=== PATIENT | female | born 1995 | race African-American/Black ===

== ENCOUNTER 2023-10-26 14:19 | Emergency (ER) | payer SELFPAY ==
[2023-10-26] VITALS (7 sets, daily range): BP systolic 108–137; BP diastolic 55–80; PULSE 51–79; RESP 16; TEMP 36.8–37.1; O2SAT 99–100
--- NOTE | 2023-10-26 15:11 | ED_ITS ---
HPI - Abdominal Pain 2 General: Chief Complaint: Abdominal Pain Stated Complaint: abd pain Time Seen by Provider: 10/26/23 15:01 History of Present Illness: 28-year-old female comes in today with l ower abdominal pain. Patient reports pain for about 1 week. Patient started her period about 2 days ago. Patient does have a history of microcytic anemia and heavy periods. Patient routinely takes acetaminophen and iron. Patient denies sexual intercourse. Patient reports no nausea vomiting or diarrhea. Patient does occasionally use alcohol but does not use any other drugs including marijuana, tobacco, methamphetamines. Patient has a family history of ovarian cancer. 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 Patient reports she is concerned that she may be anemic and required blood transfusion as she has had to have 1 in the past. Related Data: Date of Last Menstrual Period: 10/26/23 Review of Systems 2 General: Reports: 10 or more systems reviewed and unremarkable except in HPI and below GI: Reports: abdominal pain [facility] ED 2 Female Reproductive History: Date of last menstrual period: 10/26/23 Physical Exam 2 Const: COMMON NORMALS: alert HENMT: COMMON NORMALS: normocephalic HEAD & SCALP: normocephalic Neck/C-Spine: COMMON NORMALS: full ROM Resp: COMMON NORMALS: normal respiratory effort and clear to auscultation bilaterally AUSCULTATION: clear to auscultation bilaterally Cardio: COMMON NORMALS: regular rate RATE: regular rate GI: COMMON NORMALS: Soft to palpation PALPATION: Yes Soft to palpation and Yes Tenderness to palpation present (GI) (Mild periumbilical) Back/Pelvis: COMMON NORMALS: thoracic and lumbar spine normal to inspection Extremity: COMMON NORMALS: full ROM Neuro: SENSORIUM/ORIENTATION: Yes alert Skin: COMMON NORMALS: turgor normal GENERAL SKIN EXAM: turgor normal Course 2 Vital Signs: Vital signs: Vital Signs Temperature 98.8 F 10/26/23 18:30 Pulse Rate 74 10/26/23 19:04 Respiratory Rate 16 10/26/23 19:04 Blood Pressure 115/68 10/26/23 19:04 Pulse Oximetry 100 10/26/23 19:04 Oxygen Delivery Me thod Room Air 10/26/23 16:43 MDM - Abdominal Pain Medical Decision Making 28-year-old female comes in today for complaints of lower abdominal pain. Patient has a history of a bifurcated uterus and anemia. Patient is concerned that she may be anemic and requiring a blood transfusion due to similar symptoms to the last time she had to have a unit of blood. Patient appears nontoxic. Patient has been on her period x 2 days. Abdomen soft and flat with some mild suprapubic tenderness. Vital signs are normal except for some mild bradycardia with the pulse in the 50s. Differential diagnosis includes not limited to endometriosis, dysmenorrhea, abnormal uterine bleeding, anemia. Reviewed exam with Dr. Ohara, attending ER physician, who agreed with plan for transfusion of 1 unit of packed red blood cells for anemia. Hemoglobin was 6.9. Patient was infused with 1 unit of packed red blood cells with recommendations to follow-up with NETWORK TECHNICAL ANALYST for further treatment of menorrhagia. Patient has a long history of this and has had prior blood transfusions. Patient most likely will need hysterectomy but wants to be able to have a child which is delaying her care. Lab Data 10/26/23 15:00 10/26/23 15:00 Labs/Radiology: Laboratory Results WBC 6.38 10^3/uL (3.29-11.43) 10/26/23 15:00 RBC 4.44 10^6/uL (3.85-5.65) 10/26/23 15:00 Hgb 6.90 g/dL (11.27-16.99) L 10/26/23 15:00 Hct 28.7 % (36-47) L 10/26/23 15:00 MCV 64.6 fl (85-98) L 10/26/23 15:00 MCH 15.5 pg (27-33) L 10/26/23 15:00 MCHC 24.0 g/dL (30-55) L 10/26/23 15:00 RDW 19.9 % (12.1-15.1) H 10/26/23 15:00 Plt Count 559 10^3/cmm (157-399) H 10/26/23 15:00 MPV 9.8 fL (7.4-10.4) 10/26/23 15:00 Neut % (Auto) 70.7 % 10/26/23 15:00 Lymph % (Auto) 23.4 % 10/26/23 15:00 [place] % (Auto) 4.4 % 10/26/23 15:00 Eos % (Auto) 0.6 % 10/26/23 15:00 Baso % (Auto) 0.6 % 10/26/23 15:00 Neut # (Auto) 4.51 10^3/uL (1.8-7.7) 10/26/23 15:00 Lymph # (Auto) 1.5 10^3/uL (0.8-4.8) 10/26/23 15:00 [place] # (Auto) 0.3 10^3/uL (0.2-0.9) 10/26/23 15:00 Eos # (Auto) 0.0 10^3/uL (0.0-0.8) 10/26/23 15:00 Baso # (Auto) 0.0 10^3/uL (0.0-0.1) 10/26/23 15:00 Nucleated RBC % (auto) 0 % 10/26/23 15:00 Nucleated RBCs # 0.0 /100WBC 10/26/23 15:00 Sodium 137 mmol/L (136-145) 10/26/23 15:00 Potassium 4.2 mmol/L (3.5-5.1) 10/26/23 15:00 Chloride 102 mmol/L (98-107) 10/26/23 15:00 Carbon Dioxide 25 mmol/L (22-29) 10/26/23 15:00 Anion Gap 14.2 (5-19) 10/26/23 15:00 BUN 6 mg/dL (6-20) 10/26/23 15:00 Creatinine 0.7 mg/dL (0.5-0.9) 10/26/23 15:00 GFR Calculation 121.5 mL/min (90-130) 10/26/23 15:00 Glucose 95 mg/dL (65-115) 10/26/23 15:00 Calculated Osmolality 281 mOsm/kg (285-295) L 10/26/23 15:00 Lactic Acid 1.3 mmol/L (0.5-2.2) 10/26/23 15:00 Calcium 8.5 mg/dL (8.5-10.5) 10/26/23 15:00 Total Bilirubin 0.5 mg/dL (0.15-1.2) 10/26/23 15:00 AST 19 U/L (0-32) 10/26/23 15:00 ALT 10 U/L (0-33) 10/26/23 15:00 Alkaline Phosphatase 65 U/L (35-105) 10/26/23 15:00 C-Reactive Protein 3.0 mg/L (0.0-4.9) 10/26/23 15:00 Total Protein 8.2 g/dL (6.6-8.7) 10/26/23 15:00 Albumin 4.5 g/dL (3.5-5.2) 10/26/23 15:00 Globulin 3.7 g/dL (1.3-4.6) 10/26/23 15:00 HCG, Qual Negative (Negative) 10/26/23 15:00 Blood Type A Positive 10/26/23 15:43 Rho(D) Type Rh positive 10/26/23 15:43 Antibody Screen Negative 10/26/23 15:43 Crossmatch See Detail 10/26/23 15:43 No radiology studies performed this visit Discharge Plan Discharge Patient Disposition: Home Clinical Impression: Menorrhagia Qualifiers: Menorrhagia type: with regular cycle Qualified Code(s): N92.0 - Excessive and frequent menstruation with regular cycle Anemia Qualifiers: Anemia type: iron deficiency Iron deficiency anemia type: chronic blood loss Q ualified Code(s): D50.0 - Iron deficiency anemia secondary to blood loss (chronic) Condition: Stable Prescriptions: No Action acetaminophen 500 mg Tablet 1,000 mg PO Q6H PRN (Reason: Pain) iron 325 mg (65 mg iron) Tablet 325 mg PO TID Discharge Orders: Discharge ED (Routine); Ordered 10/26/23 Ordered By: Raheem Macdonald Discharge Diet: Usual diet Discharge Activity: Increase activity as tolerated Patient Instructions: Blood Transfusion (DC) Activity Restrictions/Additional Instructions: Follow-up with NETWORK TECHNICAL ANALYST for further treatment and recommendations regarding your heavy periods. Return to ER for increased symptoms such as feeling like you are going to pass out, increasing weakness, increasing shortness of breath. Coding Level of Care Code ED Green Chain Puller for Ellie Holman
[2023-10-26 15:12] LABS: Basophils % 0.6 %; Eosinophils % 0.6 %; Hematocrit 28.7 % (36-47); Lymphocytes # 1.5 10^3/uL (0.8-4.8); Lymphocytes % 23.4 %; Mean Corpuscular Hemoglobin 15.5 pg (27-33); Mean Corpuscular Volume 64.6 fl (85-98); Mean Platelet Volume 9.8 fL (7.4-10.4); Monocytes # 0.3 10^3/uL (0.2-0.9); Monocytes % 4.4 %; Neutrophils # 4.51 10^3/uL (1.8-7.7); Neutrophils % 70.7 %; Nucleated Red Blood Cells % 0 %; Platelet Count 559 10^3/cmm (157-399); Red Blood Count 4.44 10^6/uL (3.85-5.65); Red Cell Distribution Width 19.9 % (12.1-15.1); White Blood Count 6.38 10^3/uL (3.29-11.43)
[2023-10-26 15:26] LABS: HCG, Serum Qual Negative (Negative)
[2023-10-26 15:31] LABS: Lactic Sepsis W/Reflex 1.3 mmol/L (0.5-2.2)
[2023-10-26 15:32] LABS: Alanine Aminotransferase 10 U/L (0-33); Albumin Level 4.5 g/dL (3.5-5.2); Alkaline Phosphatase 65 U/L (35-105); Anion Gap 14.2 (5-19); Aspartate Amino Transferase 19 U/L (0-32); Blood Urea Nitrogen 6 mg/dL (6-20); Calcium 8.5 mg/dL (8.5-10.5); Carbon Dioxide 25 mmol/L (22-29); Chloride 102 mmol/L (98-107); Globulin 3.7 g/dL (1.3-4.6); Glomerular Filtration Rate 121.5 mL/min (90-130); Glucose 95 mg/dL (65-115); Osmolality Calculated 281 mOsm/kg (285-295); Potassium 4.2 mmol/L (3.5-5.1); Sodium 137 mmol/L (136-145); Total Bilirubin 0.5 mg/dL (0.15-1.2); Total Protein 8.2 g/dL (6.6-8.7)
--- NOTE | 2023-10-30 06:07 | DCPLANNER ---
message sent to OBGYN for follow up heavy periods, anemia.
== END 2023-10-26 19:03 | disposition home or self-care (01) ==
PROVIDERS: Emergency Medicine; Emergency Provider Nurse Practitioner Family
DX: N92.0 Excessive and frequent menstruation with regular cycle (principal); D50.0 Iron deficiency anemia secondary to blood loss (chronic)
CPT/HCPCS: 36415; 36430; 80053; 83605; 84703; 85025; 86140; 86850; 86900; 86920; 99284; P9016

== ENCOUNTER 2024-02-07 15:13 | Emergency (ER) | payer OTHER, SELFPAY ==
[2024-02-07 15:26] VITALS: BP 127/87; PULSE 97; RESP 16; TEMP 36.7; O2SAT 100; BMI 29.0
[2024-02-07 16:18] LABS: Basophils % 0.5 %; Eosinophils % 0.4 %; Lymphocytes # 1.6 10^3/uL (0.8-4.8); Lymphocytes % 18.9 %; Mean Corpuscular HGB Conc 25.7 g/dL (30-55); Mean Corpuscular Hemoglobin 16.7 pg (27-33); Mean Corpuscular Volume 65.1 fl (85-98); Mean Platelet Volume 9.8 fL (7.4-10.4); Monocytes # 0.3 10^3/uL (0.2-0.9); Monocytes % 3.8 %; Neutrophils # 6.25 10^3/uL (1.8-7.7); Neutrophils % 75.9 %; Nucleated Red Blood Cells % 0 %; Platelet Count 503 10^3/cmm (157-399); Red Blood Count 4.61 10^6/uL (3.85-5.65); Red Cell Distribution Width 17.4 % (12.1-15.1); White Blood Count 8.22 10^3/uL (3.29-11.43)
[2024-02-07 16:29] LABS: Charge for UA Resulting for Rev
[2024-02-07 16:30] VITALS: BP 126/67; PULSE 83; O2SAT 100
--- NOTE | 2024-02-07 16:31 | ED_ITS ---
HPI - Female Genitourinary 2 General: Chief complaint: Vaginal Bleeding Stated complaint: abd pain Time Seen by Provider: 02/07/24 15:59 Source: patient Mode of arrival: ambulatory Limitations: no limitations History of Present Illness: Patient is a nice 28-year-old female presents to ED today with a complaint of vaginal bleeding/concern that she might need a blood transfusion, and worse than usual menstrual pain/cramping. 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 She states that because of this she has irregular and heavy periods. She states she has a history of microcytic anemia secondary to the heavy menstrual cycles and has required blood transfusions in the past. She is taking iron supplementation TID. Reports a normal hemoglobin for her is roughly around 8. She has been as low as 5 before. She was seen here in our ED several months ago and referred to CUST[facility]ER SALES SERVICE MANAGER but states she did not follow-up with them. She denies chance of . States she has not been sexually active in over a year. She states she has been having vaginal bleeding for approximately a month now along with menstrual cramping. She arrives in no acute distress with stable vital signs. MD elicited complaint: vaginal bleeding Pertinent past history: other (mullerian congenital anomaly) Onset (ago): week(s) Severity: moderate Quality of pain: cramping Consistency: intermittent Vaginal discharge: none Vaginal bleeding: moderate Exacerbating factors: none Relieving factors: none Associated symptoms: Reports no associated symptoms; Deny abdominal pain, headache(s), nausea or vaginal discharge Treatment prior to arrival: none Sexual activity: No Patient : No Related Data Home Medications Medication Instructions Recorded Confirmed acetaminophen 500 mg tablet 1,000 mg PO Q6H PRN Pain 10/26/23 10/26/23 ferrous sulfate 325 mg (65 mg 325 mg PO TID 10/26/23 10/26/23 iron) tablet (iron) Previous Rx's Medication Instructions Recorded sulfamethoxazole 800 1 tab PO BID 7 days #14 tabs 02/07/24 mg-trimethoprim 160 mg tablet (Bactrim DS) tramadol 50 mg tablet 50 mg PO Q6H PRN pain #10 tabs 02/07/24 Allergies Allergy/AdvReac Type Severity Reaction Status Date / Time No Known Allergies Allergy Verified 10/26/23 14:26 Review of Systems 2 Const: Denies: fever(s), chills, body aches, fatigue or malaise Card: Denies: chest pain Resp: Denies: dyspnea GI: Denies: abdominal pain, nausea, vomiting or diarrhea : Reports: vaginal bleeding, irregular period and pelvic pain (cramping); Denies: flank pain, difficulty voiding, dysuria, urinary frequency, urinary urgency, urinary hesitancy, hematuria, vaginal odor or vaginal discharge Musc: Denies: neck pain, back pain, extremity pain, joint pain or joint swelling Skin/Breast: Denies: rash Neuro: Denies: headache(s), numbness in extremities, weakness in extremities, sensory changes or dizziness Physical Exam 2 Const: COMMON NORMALS: no acute distress, average body habitus, patient oriented x3, no limitations, healthy appearing, alert and well nourished G ENERAL APPEARANCE: cooperative ORIENTATION/CONSCIOUSNESS: Yes awake, Yes oriented to person, Yes oriented to place and Yes oriented to time Resp: COMMON NORMALS: normal respiratory effort and clear to auscultation bilaterally AUSCULTATION: clear to auscultation bilaterally Cardio: COMMON NORMALS: regular rate and regular rhythm RATE: regular rate RHYTHM: regular rhythm GI: COMMON NORMALS: Normal to inspection, nondistended, normoactive bowel sounds present, Soft to palpation, non-tender, No hepatosplenomegaly present and no masses PALPATION: Yes Soft to palpation, Yes Tenderness to palpation present (GI) (suprapubic/pelvis) and Yes No hepatosplenomegaly present : COMMON NORMALS: Yes no CVA tenderness BLADDER/KIDNEY EXAM: Yes no CVA tenderness Back/Pelvis: COMMON NORMALS: no CVA tenderness Neuro: COMMON NORMALS: patient oriented x3 and gait normal S ENSORIUM/ORIENTATION: Yes alert, Yes oriented to person, Yes oriented to place and Yes oriented to time Skin: COMMON NORMALS: no rashes or lesions noted GENERAL SKIN EXAM: no rashes or lesions noted Course 2 Vital Signs: Vital signs: Vital Signs Temperature 98.1 F 02/07/24 15:26 Pulse Rate 83 02/07/24 16:30 Respiratory Rate 16 02/07/24 15:26 Blood Pressure 126/67 02/07/24 16:30 Pulse Oximetry 100 02/07/24 16:30 Oxygen Delivery Me thod Room Air 02/07/24 15:26 MDM - Female Medical Decision Making Patient arrives in no acute distress with stable vital signs. Her hemoglobin today is 7.7. She states a normal hemoglobin for her is roughly 8. She does not require emergent transfusion at this time. Remainder of blood work is unremarkable. Her UA shows evidence for infection with 2+ leukocyte esterase and 51-100 WBCs. Her lower abdominal/pelvic pain could be more bladder origin. Placed on antibiotics. Will have case management set her up with CUSTOMER SALES SERVICE MANAGER. I did not see any indication for emergent pelvic imaging today. Return to ED precautions given. Medical Records I reviewed the patient's medical records. Lab Data I reviewed the patient's lab results. 02/07/24 16:05 02/07/24 16:05 Laboratory Results WBC 8.22 10^3/uL (3.29-11.43) 02/07/24 16:05 RBC 4.61 10^6/uL (3.85-5.65) 02/07/24 16:05 Hgb 7.70 g/dL (11.27-16.99) L 02/07/24 16:05 Hct 30.0 % (36-47) L 02/07/24 16:05 MCV 65.1 fl (85-98) L 02/07/24 16:05 MCH 16.7 pg (27-33) L 02/07/24 16:05 MCHC 25.7 g/dL (30-55) L 02/07/24 16:05 RDW 17.4 % (12.1-15.1) H 02/07/24 16:05 Plt Count 503 10^3/cmm (157-399) H 02/07/24 16:05 MPV 9.8 fL (7.4-10.4) 02/07/24 16:05 Neut % (Auto) 75.9 % 02/07/24 16:05 Lymph % (Auto) 18.9 % 02/07/24 16:05 [place] % (Auto) 3.8 % 02/07/24 16:05 Eos % (Auto) 0.4 % 02/07/24 16:05 Baso % (Auto) 0.5 % 02/07/24 16:05 Neut # (Auto) 6.25 10^3/uL (1.8-7.7) 02/07/24 16:05 Lymph # (Auto) 1.6 10^3/uL (0.8-4.8) 02/07/24 16:05 [place] # (Auto) 0.3 10^3/uL (0.2-0.9) 02/07/24 16:05 Eos # (Auto) 0.0 10^3/uL (0.0-0.8) 02/07/24 16:05 Baso # (Auto) 0.0 10^3/uL (0.0-0.1) 02/07/24 16:05 Nucleated RBC % (auto) 0 % 02/07/24 16:05 Nucleated RBCs # 0.0 /100WBC 02/07/24 16:05 Sodium 137 mmol/L (136-145) 02/07/24 16:05 Potassium 4.0 mmol/L (3.5-5.1) 02/07/24 16:05 Chloride 101 mmol/L (98-107) 02/07/24 16:05 Carbon Dioxide 24 mmol/L (22-29) 02/07/24 16:05 Anion Gap 16.0 (5-19) 02/07/24 16:05 BUN 7 mg/dL (6-20) 02/07/24 16:05 Creatinine 0.7 mg/dL (0.5-0.9) 02/07/24 16:05 GFR Calculation 121.5 mL/min (90-130) 02/07/24 16:05 Glucose 91 mg/dL (65-115) 02/07/24 16:05 Calculated Osmolality 282 mOsm/kg (285-295) L 02/07/24 16:05 Calcium 9.1 mg/dL (8.5-10.5) 02/07/24 16:05 Total Bilirubin 0.6 mg/dL (0.15-1.2) 02/07/24 16:05 AST 21 U/L (0-32) 02/07/24 16:05 ALT 14 U/L (0-33) 02/07/24 16:05 Alkaline Phosphatase 70 U/L (35-105) 02/07/24 16:05 Total Protein 8.2 g/dL (6.6-8.7) 02/07/24 16:05 Albumin 4.6 g/dL (3.5-5.2) 02/07/24 16:05 Globulin 3.6 g/dL (1.3-4.6) 02/07/24 16:05 Lipase 41 U/L (13-60) 02/07/24 16:05 HCG, Qual Negative (Negative) 02/07/24 16:05 Urine Color Yellow (Yellow) 02/07/24 16:28 Urine Appearance Clear (CLEAR) 02/07/24 16:28 Urine pH 7.0 (5-7) 02/07/24 16:28 Ur Specific [place] 1.005 (1.005-1.030) 02/07/24 16:28 Urine Protein 1+ (Negative) A 02/07/24 16:28 Urine Glucose (UA) Negative (Normal) 02/07/24 16:28 Urine Ketones Negative (Negative) 02/07/24 16:28 Urine Blood 3+ (Negative) A 02/07/24 16:28 Urine Nitrate Negative (Negative) 02/07/24 16:28 Urine Bilirubin Negative (Negative) 02/07/24 16:28 Urine Urobilinogen 1.0 mg/dL (Negative) 02/07/24 16:28 Ur Leukocyte Esterase 2+ (Negative) A 02/07/24 16:28 Urine RBC 11-20 /hpf (0-2) H 02/07/24 16:28 Urine WBC 51-100 /hpf (0-5) H 02/07/24 16:28 Ur Squamous Epith Cells 0-5 /hpf (0-5) 02/07/24 16:28 Amorphous Sediment Not Reportable 02/07/24 16:28 Urine Bacteria None seen /hpf (NONE) 02/07/24 16:28 Hyaline Casts 0-4 /lpf H 02/07/24 16:28 No radiology studies performed this visit Discharge Plan Discharge Patient Disposition: Home Clinical Impression: Menometrorrhagia, Microcytic hypochromic anemia UTI (urinary tract infection) Qualifiers: Urinary tract infection type: acute cystitis Hematuria presence: with hematuria Qualified Code(s): N30.01 - Acute cystitis with hematuria Condition: Stable Prescriptions: New tramadol 50 mg tablet 50 mg PO Q6H PRN (Reason: pain) Qty: 10 0RF Bactrim DS 800-160 mg tablet 1 tab PO BID 7 Days Qty: 14 0RF No Action acetaminophen 500 mg Tablet 1,000 mg PO Q6H PRN (Reason: Pain) iron 325 mg (65 mg iron) Tablet 325 mg PO TID Discharge Orders: Discharge ED (Routine); Ordered 02/07/24 Ordered By: Juany Cassidy Activity Restrictions/Additional Instructions: As we discussed case management should reach out to you to help set you up with your follow-up CUSTOMER SALES SERVICE MANAGER appointment. As we discussed you need to return to the emergency department for worsening or continued vaginal bleeding, lightheadedness/dizziness/passing out episodes, racing heart rate, significant shortness of breath, or any other concerns you may have. You are found to have a urinary tract infection today. Please fill your antibiotics and start them immediately. You need to return to the emergency department for worsening abdominal pain, repetitive episodes of vomiting, fevers, flank pain, inability to hold down your antibiotics, generally feeling worse or unwell, or any other concerns you may have. Coding Level of Care Code ED Cutch Cleaner for Ellie Holman
[2024-02-07 16:33] LABS: HCG, Serum Qual Negative (Negative)
[2024-02-07 16:42] LABS: Bilirubin Urine Negative (Negative); Blood Urine 3+ (Negative); Glucose Urine UA Negative (Normal); Ketones Urine Negative (Negative); Leukocyte Esterase Urine 2+ (Negative); Nitrate Urine Negative (Negative); Protein Urine 1+ (Negative); Specific Gravity, Urine 1.005 (1.005-1.030); Urine Appearance Clear (CLEAR); Urine Color Yellow (Yellow)
[2024-02-07 16:43] LABS: Alanine Aminotransferase 14 U/L (0-33); Albumin Level 4.6 g/dL (3.5-5.2); Alkaline Phosphatase 70 U/L (35-105); Aspartate Amino Transferase 21 U/L (0-32); Blood Urea Nitrogen 7 mg/dL (6-20); Calcium 9.1 mg/dL (8.5-10.5); Carbon Dioxide 24 mmol/L (22-29); Chloride 101 mmol/L (98-107); Creatinine Clr Calc Pharmacy 103.5472; Globulin 3.6 g/dL (1.3-4.6); Glomerular Filtration Rate 121.5 mL/min (90-130); Glucose 91 mg/dL (65-115); Lipase 41 U/L (13-60); Osmolality Calculated 282 mOsm/kg (285-295); Sodium 137 mmol/L (136-145); Total Bilirubin 0.6 mg/dL (0.15-1.2); Total Protein 8.2 g/dL (6.6-8.7)
[2024-02-07 16:47] LABS: Bacteria Urine None Seen /hpf; Hyaline Casts Urine 0-4 /lpf; Squamous Epithelial Cell Urine 0-5 /hpf (0-5); WBC Urine 51-100 /hpf (0-5)
[2024-02-07 17:16] LABS: Add Urine Culture? Yes
[2024-02-07 17:27] VITALS: BP 118/67; PULSE 87; O2SAT 99
--- NOTE | 2024-02-08 07:10 | DCPLANNER ---
messaged [facility] for er f/u
== END 2024-02-07 17:28 | disposition home or self-care (01) ==
PROVIDERS: Emergency Provider Physician Assistant
DX: N30.01 Acute cystitis with hematuria (principal); N92.1 Excessive and frequent menstruation with irregular cycle; D50.9 Iron deficiency anemia, unspecified
CPT/HCPCS: 36415; 80053; 81003; 81015; 83690; 84703; 85025; 87086; 99283

== ENCOUNTER → 2024-03-21 11:00 | Outpatient (BNVA) | payer OTHER, SELFPAY | PROVIDERS: Referring Provider Physician Assistant; Visit Provider Nurse Practitioner Women's Health | DX: Z34.90 Encounter for supervision of normal pregnancy, unspecified, unspecified trimester (principal); N93.9 Abnormal uterine and vaginal bleeding, unspecified | CPT/HCPCS: 82607; 82728; 82746; 83550; 85025; 86140 ==

== ENCOUNTER → 2024-03-26 10:16 | Outpatient (BNVA) | payer OTHER, SELFPAY | PROVIDERS: Visit Provider Nurse Practitioner Women's Health | DX: Q50.39 Other congenital malformation of ovary (principal); N93.9 Abnormal uterine and vaginal bleeding, unspecified; N83.8 Other noninflammatory disorders of ovary, fallopian tube and broad ligament | CPT/HCPCS: 76830 ==

== ENCOUNTER 2024-05-02 13:23 | Emergency (ER) | payer OTHER, SELFPAY ==
[2024-05-02 13:30] VITALS: BP 142/77; PULSE 96; RESP 18; TEMP 36.9; O2SAT 100; BMI 29.2
[2024-05-02 13:33] VITALS: BP 142/77; PULSE 96; RESP 18; TEMP 36.9; O2SAT 100
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
[2024-05-02] MEDS: fluorescein 1 mg Strip EYE-RIGHT (15:05)
[2024-05-02] MEDS: tetracaine 0.5% Op Soln 4 mL Btl 1 DROP EYE-RIGHT (15:05)
[2024-05-02 15:09] VITALS: BP 132/67; PULSE 91; RESP 16; O2SAT 100
[2024-05-02] MEDS: HYDROcodone-acetaminophen 5-325 mg Tablet 1 TAB PO (15:12)
[2024-05-02] MEDS: ondansetron 4 MG Tablet PO (15:12)
[2024-05-02 15:45] VITALS: BP 137/77; PULSE 97; RESP 16; O2SAT 99
== END 2024-05-02 15:47 | disposition home or self-care (01) ==
PROVIDERS: Emergency Provider Nurse Practitioner
DX: S02.31XA Fracture of orbital floor, right side, initial encounter for closed fracture (principal); S00.81XA Abrasion of other part of head, initial encounter; V09.9XXA Pedestrian injured in unspecified transport accident, initial encounter; Z87.891 Personal history of nicotine dependence; I10 Essential (primary) hypertension
CPT/HCPCS: 70450; 70486; 99284; Q0162

== ENCOUNTER 2024-09-02 15:06 | Emergency (ER) | payer SELFPAY ==
[2024-09-02 15:07] VITALS: BP 108/54; PULSE 89; TEMP 36.8; O2SAT 100
--- NOTE | 2024-09-02 15:17 | XR_ITS ---
WS: [id number] Exam: XR foot LT min 3V* [id number] Date/Time of Exam: 09/02/2024 3:33 PM Reason For Exam: foot pain No fracture. The joints are preserved. No soft tissue foreign bodies are noted. XR/XR foot LT min 3V* [id number] IMPRESSION: 1. Negative LEFT foot.
--- NOTE | 2024-09-02 15:39 | W.ED.EXTPRO ---
HPI - Extremity Problem General: Chief complaint: Extremity Problem,Nontraumatic Stated complaint: Pain in L foot Time Seen by Provider: 09/02/24 15:18 Source: patient Mode of arrival: ambulatory Limitations: no limitations History of Present Illness: Patient is a 29-year-old female presents to ED today for evaluation of intermittent left foot and ankle pains that she has had over the past several months. Patient states symptoms seem to flare and then will decrease back to baseline. She does not feel like pain never fully resolves. She states [id number] Tylenol and ibuprofen do not seem to help with discomfort. She states she has been walking more than normal as she currently does not have a vehicle. She will intermittently get some paresthesias to the lateral dorsal aspect of the foot. She has not noticed any significant edema. No color or temperature changes. Of note, she states as a child she required foot/leg bracing. She does admit to being very flat-footed. MD Complaint: extremity pain and joint pain Onset (ago): month(s) Pain Consistency: intermittent Location: left and lower extremity Radiation: none Relieving factors: immobilization and elevation Exacerbating factors: range of motion, weight bearing and walking Associated symptoms: Reports no associated symptoms Related Data Home Medications ?Medication ?Instructions ?Recorded ?Confirmed ferrous sulfate 325 mg (65 mg 325 mg PO TID 10/26/23 09/02/24 iron) tablet (iron) metronidazole 500 mg tablet 500 mg PO BID 09/02/24 09/02/24 Allergies Allergy/AdvReac Type Severity Reaction Status Date / Time No Known Allergies Allergy Verified 09/02/24 15:14 Review of Systems Musc: Reports: extremity pain (L foot) and joint pain (L ankle); Denies: extremity swelling, joint swelling, joint redness, joint warmth, muscle cramps or muscle weakness Neuro: Denies: weakness in extremities PFSH ED PFSH: Family History Mother Ovarian cancer Hypertension Social History Smoking and tobacco/nicotine status: former use of tobacco/nicotine (2018) Physical Exam Const: COMMON NORMALS: no acute distress, average body habitus, no limitations, healthy appearing, alert and well nourished Extremity: COMMON NORMALS: full ROM, capillary refill normal, no joint enlargement, no clubbing, cyanosis or edema, no calf tenderness and no pedal edema GENERAL: Yes normal exam except as noted LEFT LOWER EXTREMITY: Yes ankle joint Left ankle: Yes palpation (TTP lateral/dorsal L foot), Yes ROM (normal ) and Yes neurovascular exam (normal) and Yes foot & digits Left foot and digits: Yes inspection (normal gross inspection foot/ankle; flat footed), Yes ROM (normal) and Yes neurovascular exam (normal) Neuro: COMMON NORMALS: moves all extremities, no focal motor deficits and no sensory deficits noted SENSORIUM/ORIENTATION: Yes alert Course Vital Signs: Vital signs: Vital Signs Temperature 98.3 F 09/02/24 15:07 Pulse Rate 89 09/02/24 15:07 Blood Pressure 108/54 09/02/24 15:07 Pulse Oximetry 100 09/02/24 15:07 Oxygen Delivery Me thod Room Air 09/02/24 15:07 MDM - Extremity (Nontraumatic) Medical Decision Making XR of the left foot is unremarkable. Will refer her to podiatry as symptoms are not improving and becoming more so bothersome. Discussed use of crutches which she will be provided with today. Lab Data Radiology Impressions Foot X-Ray 09/02/24 15:17 IMPRESSION: 1. Negative LEFT foot. All radiology interpretation(s) finalized by discharge Discharge Plan Discharge Patient Disposition: Home Clinical Impression: Chronic pain in left foot Condition: Stable Prescriptions: No Action hydrocodone-acetaminophen 5-325 mg tablet 1 tab PO Q6H PRN (Reason: pain) Qty: 10 0RF ferrous sulfate [iron] 325 mg (65 mg iron) Tablet 325 mg PO TID Discharge Orders: Discharge ED (Routine); Ordered 09/02/24 Ordered By: Juany Cassidy Activity Restrictions/Additional Instructions: As we discussed, we will refer you to podiatry as your foot pain is not improving and becoming more bothersome. 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
[2024-09-02 16:05] VITALS: BP 130/65; PULSE 81; O2SAT 100
--- NOTE | 2024-09-04 10:45 | PC.SOCIAL ---
Podiatry F/u Referral message sent to ortho clinic at this time.
== END 2024-09-02 16:25 | disposition home or self-care (01) ==
PROVIDERS: Emergency Provider Physician Assistant
DX: M79.672 Pain in left foot (principal); Z87.891 Personal history of nicotine dependence
CPT/HCPCS: 73630; 99283; E0114